=== PATIENT | female | born 1980 | race Asian ===

== ENCOUNTER 2018-05-04 12:46 | Outpatient (CLI) | payer OTHER ==
--- NOTE | 2018-05-04 13:14 | RAD ---
F3 views of the nasal bones: 05/04/2018 COMPARISON: None HISTORY: Injury, trauma, pain FINDINGS: No displaced nasal bone fracture identified. Frontal imaging, slightly limited by motion, appears unremarkable. IMPRESSION: No displaced nasal bone fracture.
== END 2018-05-04 12:47 | disposition home or self-care (01) ==
LOC: BICRAD 12:46
DX: S09.92XA Unspecified injury of nose, initial encounter (principal)
CPT/HCPCS: 70160

== ENCOUNTER 2019-11-02 13:06 | Outpatient (CLI) | payer BC ==
--- NOTE | 2019-11-02 14:16 | RAD ---
PA AND LATERAL OF THE CHEST: 11/02/19 INDICATION: Nausea. COMPARISON: Prior exam dated 11/30/17. FINDINGS: The lungs are clear. Heart size is normal. No pleural effusion or pneumothorax is evident. No acute osseous abnormality. IMPRESSION: No acute cardiopulmonary abnormality. POS: [facility]
== END 2019-11-02 13:07 | disposition home or self-care (01) ==
LOC: BICRAD 13:06
PROVIDERS: ATTEND Internal Medicine Gastroenterology
DX: M25.512 Pain in left shoulder (principal); R10.9 Unspecified abdominal pain; R11.0 Nausea
CPT/HCPCS: 71046

== ENCOUNTER 2019-11-30 09:24 | Outpatient (CLI) | payer BC ==
--- NOTE | 2019-11-30 13:03 | CT ---
CT ABDOMEN AND PELVIS WITH IV CONTRAST 11/30/2019 CLINICAL INFORMATION: Abdominal pain for several months. COMPARISON: 04/05/2019 Technique: Multiple contiguous axial CT images are obtained through the abdomen and pelvis with IV contrast. Cor onal reformatted images are provided. FINDINGS: Lower Chest: Lung bases are clear. Vessels: Abdominal aorta is normal in caliber. Abdomen: Portal vein:Patent Gallbladder: Within normal limits for CT imaging. Liver: within normal limits. Spleen: within normal limits. Pancreas: within normal limits. Adrenals: within normal limits. Kidneys: within normal limits. Bowel: Normal caliber. Appendix: The appendix is visualized and normal in caliber. Peritoneum: No ascites or free air; no fluid collection. Mesentery and Retroperitoneum: No enlarged mesenteric or retroperitoneal lymph nodes. Abdominal Wall: within normal limits. Pelvis: Reproductive Organs: There is a 2 cm low-density mass seen within the anterior aspect of the junction of the body and fundus of the uterus which may represent a uterine fibroid. There is decreased attenuation in the endometrial canal which may related to the stage of the patient's menstrual cycle. Nabothian cysts are seen in the cervix. Bladder: within normal limits. Bones: No suspicious lytic or sclerotic osseous lesions. IMPRESSION: 1. Low-density focus anterior uterus probably related to a uterine fibroid measuring 2 cm. There is a lso fluid in the endometrial canal likely to stage the patient's menstrual cycle. These findings can be confirmed with follow-up ultrasound examination. 2. No acute findings in the abdomen or pelvis.
== END 2019-11-30 09:25 | disposition home or self-care (01) ==
LOC: SCSCT 09:24
PROVIDERS: ATTEND Internal Medicine Gastroenterology
DX: R10.9 Unspecified abdominal pain (principal); M25.512 Pain in left shoulder; R11.0 Nausea; N85.8 Other specified noninflammatory disorders of uterus
CPT/HCPCS: 74177